=== PATIENT | female | born 1985 | race Caucasian/White ===

== ENCOUNTER 2017-03-21 18:38 | Emergency (ER) | payer SELFPAY ==
[~2017-03-21] VITALS: Ht 182.8 cm; Wt 93.0 kg
[2017-03-21] MEDS ORDERED: TOPAMAX100 M1 PO (18:46)
[2017-03-21] MEDS ORDERED: ALBUTEROL2.5 MG/0.5 INH (18:46)
[2017-03-21] MEDS ORDERED: PULMO-AIDE COMP1 DEV PO (18:47)
[2017-03-21] MEDS ORDERED: ROBITUSSIN AC 110 ML PO (19:29)
[2017-03-21] MEDS ORDERED: CLARITIN10 MG PO (19:29)
[2017-03-21] MEDS ORDERED: PREDNISONE10 MG PO (19:29)
[2017-03-21] MEDS ORDERED: FLONASE ALLERG9.9 ML NAS (19:29)
[2017-03-21] MEDS ORDERED: DUONEB 3 MG/3 ML3 M1 INH (19:29)
== END 2017-03-21 19:40 | disposition home or self-care (01) ==
LOC: ED 18:38
DX: J45.901 Unspecified asthma with (acute) exacerbation (principal); R03.0 Elevated blood-pressure reading, without diagnosis of hypertension; Z88.0 Allergy status to penicillin

== ENCOUNTER 2021-11-02 22:54 | Emergency (ER) | payer BC ==
[~2021-11-02] VITALS: Ht 182.8 cm; Wt 111.1 kg
[~2021-11-02 22:54] MED LIST: ALBUTEROL2.5 MG/0.5 INH; CLARITIN10 MG PO; DUONEB 3 MG/3 ML3 M1 INH; FLONASE ALLERG9.9 ML NAS; PREDNISONE10 MG PO; PULMO-AIDE COMP1 DEV PO; ROBITUSSIN AC 110 ML PO; TOPAMAX100 M1 PO
[2021-11-02 23:21] LABS: BASO # 0.1 10*3/uL (0.0-0.1); BASO % 0.6 % (0.0-1.0); EOS # 0.5 10*3/uL (0.0-0.4); EOS % 5.6 % (1.0-4.0); HEMATOCRIT 44.9 % (37.0-47.0); LYMPH # 2.2 10*3/uL (1.3-4.4); LYMPH % 25.3 % (27.0-41.0); MEAN CELL VOLUME 86.2 fl (81.0-99.0); MEAN CORPUSCULAR HGB 27.8 pg (27.0-31.0); MEAN CORPUSCULAR HGB CONC 32.3 g/dl (33.0-37.0); MEAN PLATELET VOLUME 10.6 fl (9.6-12.3); MONO # 0.6 10*3/uL (0.1-1.0); MONO % 6.9 % (3.0-9.0); NEUT # 5.3 10*3/uL (2.3-7.9); PLATELET COUNT AUTOMATED 260 10*3/uL (130-400); RED BLOOD COUNT 5.21 10*6/uL (4.10-5.10); RED CELL DISTRI WIDTH 12.9 % (0-14.5); WHITE BLOOD COUNT 8.7 10*3/uL (4.8-10.8)
[2021-11-02 23:37] LABS: ALBUMIN 3.4 gm/dl (3.1-4.5); ALKALINE PHOSPHATASE 87 U/L (45-117); BUN 16 mg/dl (7-24); CHLORIDE 108 mmol/L (98-107); CREATININE 0.96 mg/dL (0.55-1.02); LIPASE 160 U/L (73-393); POTASSIUM 3.7 mmol/L (3.5-5.1); SGOT/AST 19 IU/L (3-35); SGPT/ALT 48 U/L (12-78); SODIUM 139 mmol/L (136-145)
[2021-11-03 00:56] LABS: BILIRUBIN Negative (Negative); BLOOD 3+ (Negative); CLARITY Turbid (Clear); COLOR Yellow (Yellow); GLUCOSE Negative (Negative); KETONE Trace (Negative); LEUKO ESTERASE Negative (Negative); NITRITE Negative (Negative); PH 5.5 (4.5-8.0); SPECIFIC GRAVITY >= 1.030 (1.001-1.030)
[2021-11-03 01:13] LABS: BACTERIA 3+; EPITHELIAL CELLS 16-20
[2021-11-03 01:14] LABS: RBC 16-20 rbc/hpf (0-2)
== END 2021-11-03 03:33 | disposition home or self-care (01) ==
LOC: ED 22:54
PROVIDERS: Physician Assistant
DX: S30.1XXA Contusion of abdominal wall, initial encounter (principal); Z88.0 Allergy status to penicillin; Z79.899 Other long term (current) drug therapy; Y08.89XA Assault by other specified means, initial encounter; Y93.89 Activity, other specified; Y92.89 Other specified places as the place of occurrence of the external cause; Y99.8 Other external cause status